=== PATIENT | female | born 1975 | race Caucasian/White ===

== ENCOUNTER 2021-01-23 22:15 | Outpatient (CLI) | payer OTHER | END 2021-01-23 22:16 | disposition critical access hospital (66) | LOC: EMS 22:15 | DX: F41.9 Anxiety disorder, unspecified (principal); R07.89 Other chest pain | CPT/HCPCS: A0425; A0429 ==

== ENCOUNTER 2021-01-23 22:28 | Emergency (ER) | payer OTHER ==
--- NOTE | 2021-01-24 00:15 | ED Physician Documentation ---
History of Present Illness - Stated complaint Stated Complaint: PANIC ATTACK - Chief complaint Chief Complaint: MHE - History obtained from History obtained from: Patient, EMS - History of Present Illness Timing: Today, How many hours ago (1) Pain level now: 2 Improved by: nothing Worsened by: no exacerbating factors - Additonal information Additional information: BIBA, c/o chest pressure, diaphoresis, dizzy, pounding palpitations, onset shortly before arrival, was at home at rest. Review of Systems Constitutional: reports: Sweats. denies: Fever Cardiac: reports: Chest pain / pressure, Palpitations, Calf pain. denies: Pedal edema Respiratory: reports: Dyspnea. 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 - Present Medications Home Medications: Ambulatory Orders Medication Instructions Recorded Confirmed Buprenorphine HCl/Naloxone HCl 01/23/21 [Suboxone 8-2 mg Tab] Gabapentin [Neurontin] 01/23/21 Levothyroxine [Synthroid] 01/23/21 Lisdexamfetamine Dimesylate 01/23/21 01/23/21 [Vyvanse] Pantoprazole Sodium [Protonix] 40 mg PO DAILY 01/23/21 01/23/21 Prochlorperazine [Compazine] 01/23/21 01/23/21 Venlafaxine ER [Effexor ER] 01/23/21 traZODone [Desyrel] 50 mg PO HS 01/23/21 01/23/21 HYDROcod/ACETAM 5/325 [[place] 5/325] 1 - 2 tablet PO Q6H PRN #10 tablet 01/24/21 - Allergies Allergies/Adverse Reactions: Allergies Allergy/AdvReac Type Severity Reaction Status Date / Time buspirone [From BuSpar] Allergy Unknown Verified 01/23/21 22:38 zolpidem [From Ambien] Allergy Unknown Verified 01/23/21 22:38 - Social History Does the pt smoke?: Yes Smoking Status: Current some day smoker Does the pt drink ETOH?: No Does the pt have substance abuse?: Yes Substance Use and Type: Marijuana - Immunizations Immunizations are current?: Yes PD ED PE NORMAL - Vitals Vital signs reviewed: Yes - General General: Alert and oriented X 3, No acute distress, Well developed/nourished - HEENT HEENT: PERRL, EOMI, Moist mucous membranes - Neck Neck: Supple, no meningeal sign, No JVD - Cardiac Cardiac: No murmur, No rub - Respiratory Respiratory: No respiratory distress, Clear bilaterally - Abdomen Abdomen: Soft, Non tender - Derm Derm: Normal color - Extremities Extremities: No edema PD ED PE EXPANDED - Cardiac Cardiac: Tachy, Regular Rhythm Results - Vitals Vitals: Oxygen O2 Source Room air - EKG (time done) No standard instances Rate: Rate (enter#) (90) Rhythm: NSR [place]: Normal Intervals: Normal [place] QRS: LVH Ischemia: Normal ST segments, Q waves (V1,V2) - Labs Labs: Laboratory Tests 01/24/21 01/24/21 01/24/21 00:38 00:38 00:38 WBC 9.7 RBC 4.08 L Hgb 12.4 Hct 37.6 MCV 92.2 MCH 30.4 MCHC 33.0 RDW 12.9 Plt Count 218 MPV 9.1 Neut # (Auto) 7.1 H Lymph # (Auto) 1.7 [place] # (Auto) 0.7 Eos # (Auto) 0.1 Baso # (Auto) 0.1 Absolute Nucleated RBC 0.00 Nucleated RBC % 0.0 D-Dimer Sodium 138 Potassium 4.0 Chloride 109 Carbon Dioxide 23 Anion Gap 6.0 BUN 12 Creatinine 0.9 Estimated GFR (MDRD) 68 L Glucose 95 Calcium 8.9 Total Bilirubin 0.3 AST 14 ALT 14 Alkaline Phosphatase 63 Troponin I High Sens 2.9 Total Protein 6.2 L Albumin 3.9 Globulin 2.3 Albumin/Globulin Ratio 1.7 Lipase 26 01/24/21 00:38 WBC RBC Hgb Hct MCV MCH MCHC RDW Plt Count MPV Neut # (Auto) Lymph # (Auto) [place] # (Auto) Eos # (Auto) Baso # (Auto) Absolute Nucleated RBC Nucleated RBC % D-Dimer 209.2 Sodium Potassium Chloride Carbon Dioxide Anion Gap BUN Creatinine Estimated GFR (MDRD) Glucose Calcium Total Bilirubin AST ALT Alkaline Phosphatase Troponin I High Sens Total Protein Albumin Globulin Albumin/Globulin Ratio Lipase PD MEDICAL DECISION MAKING - ED course Complexity details: reviewed results, re-evaluated patient, considered differential, d/w patient Departure - Departure Disposition: Home, Self Care Clinical Impression: Chest pain, Near syncope Condition: Good Instructions: ED Chest Pain Atypical Unkn Cause, ED Near Syncope Unkn Prescriptions: HYDROcod/ACETAM 5/325 [[place] 5/325] 1 - 2 tablet PO Q6H PRN #10 tablet PRN Reason: Pain Comments: Follow up with your primary care provider, call Tuesday to arrange for next available appointment. Discharge Date/Time: 01/24/21 02:00
[2021-01-24 00:44] LABS: BASOPHILS # (AUTO) 0.1 10^3/uL (0.0-0.1); BASOPHILS % (AUTO) 0.7 %; EOSINOPHILS # (AUTO) 0.1 10^3/uL (0.0-0.7); EOSINOPHILS % (AUTO) 0.5 %; HCT - HEMATOCRIT 37.6 % (37.0-47.0); HGB - HEMOGLOBIN 12.4 g/dL (12.0-16.0); LYMPHOCYTES # (AUTO) 1.7 10^3/uL (1.5-3.5); LYMPHOCYTES % (AUTO) 17.8 %; MEAN CORPUSCULAR HEMOGLOBIN 30.4 pg (27.0-31.0); MEAN CORPUSCULAR VOLUME 92.2 fL (81.0-99.0); MEAN PLATELET VOLUME 9.1 fL (7.9-10.8); MONOCYTES # (AUTO) 0.7 10^3/uL (0.0-1.0); MONOCYTES % (AUTO) 6.7 %; NEUTROPHILS # (AUTO) 7.1 10^3/uL (1.5-6.6); PLT - PLATELET COUNT 218 10^3/uL (130-450); RED BLOOD COUNT 4.08 10^6/uL (4.20-5.40); RED CELL DISTRIBUTION WIDTH 12.9 % (12.0-15.0); WHITE BLOOD COUNT 9.7 x10^3/uL (4.8-10.8)
[2021-01-24 00:59] LABS: ALBUMIN 3.9 g/dL (3.2-5.5); ALBUMIN/GLOBULIN RATIO 1.7 (1.0-2.2); BILIRUBIN,TOTAL 0.3 mg/dL (0.2-1.0); CALCIUM 8.9 mg/dL (8.5-10.3); CREATININE 0.9 mg/dL (0.4-1.0); TOTAL PROTEIN 6.2 g/dL (6.7-8.2)
[2021-01-24] MEDS ORDERED: KETOROLAC 30 MG/ML VIAL IVP STA (01:31)
[2021-01-24] MEDS ORDERED: HYDROcod/ACETAM 5/325 MG TABLET PO STA (01:31)
[2021-01-24 01:57] VITALS: BP 126/78
--- NOTE | 2021-01-24 09:54 | XRAY Report ---
PROCEDURE: Chest 2 View X-Ray INDICATIONS: near syncope, chest pain TECHNIQUE: 2 view(s) of the chest. COMPARISON: None. FINDINGS: Surgical changes and devices: None. Lungs and pleura: No pleural effusions or pneumothorax. Lungs are clear. Mediastinum: Mediastinal contours are normal. Heart size is normal. Bones and chest wall: No suspicious bony abnormalities. Soft tissues appear unremarkable. IMPRESSION: Normal for age, source of current symptoms is not seen. Reviewed by: Hever Jackson MD on 01/24/2021 8:52 AM [facility] Approved by: Hever Jackson MD on 01/24/2021 8:52 AM [facility] Station ID: [id number]
== END 2021-01-24 02:00 | disposition home or self-care (01) ==
LOC: ED 22:28
DX: R07.9 Chest pain, unspecified (principal); R55 Syncope and collapse; F17.200 Nicotine dependence, unspecified, uncomplicated
CPT/HCPCS: 36415; 71046; 80053; 83690; 84484; 85025; 85379; 93005; 96374; 99284; A9270

== ENCOUNTER 2021-01-26 14:19 | Emergency (ER) | payer OTHER ==
[2021-01-26] MEDS ORDERED: LORazepam 1 MG TABLET PO STA (14:49)
--- NOTE | 2021-01-26 14:49 | ED Physician Documentation ---
History of Present Illness - Stated complaint Stated Complaint: CP, LEFT SHOULDER PX - Chief complaint Chief Complaint: Cardiac - History obtained from History obtained from: Patient - Additonal information Additional information: 45-year-old woman with generalized anxiety and diabetes used marijuana on Tuesday night and then was hanging up clothes later and developed substernal chest pressure radiating to the shoulders, especially the left. She has had it persistently since then. She still has presyncopal episodes. She was seen that night and the work-up was negative except for an EKG suggesting LVH. Review of Systems Ten Systems: 10 systems reviewed and negative Constitutional: denies: Fever, Myalgias Nose: denies: Rhinorrhea / runny nose, Congestion Throat: denies: Sore throat Cardiac: reports: Chest pain / pressure. denies: Palpitations Respiratory: denies: Dyspnea, Cough PD PAST MEDICAL HISTORY - Past Medical History GI: GERD Psych: Depression, ADD/ADHD - Past Surgical History Past Surgical History: Yes /MEDICAL COLLECTIONS: Hysterectomy, Breast implants - Present Medications Home Medications: Ambulatory Orders Medication Instructions Recorded Confirmed Buprenorphine HCl/Naloxone HCl 01/23/21 [Suboxone 8-2 mg Tab] Gabapentin [Neurontin] 01/23/21 Levothyroxine [Synthroid] 01/23/21 Lisdexamfetamine Dimesylate 01/23/21 01/23/21 [Vyvanse] Pantoprazole Sodium [Protonix] 40 mg PO DAILY 01/23/21 01/23/21 Prochlorperazine [Compazine] 01/23/21 01/23/21 Venlafaxine ER [Effexor ER] 01/23/21 traZODone [Desyrel] 50 mg PO HS 01/23/21 01/23/21 HYDROcod/ACETAM 5/325 [[place] 5/325] 1 - 2 tablet PO Q6H PRN #10 tablet 01/24/21 LORazepam [Ativan] 1 mg PO TID PRN #12 tablet 01/26/21 - Allergies Allergies/Adverse Reactions: Allergies Allergy/AdvReac Type Severity Reaction Status Date / Time buspirone [From BuSpar] Allergy Unknown Verified 01/26/21 14:22 zolpidem [From Ambien] Allergy Unknown Verified 01/26/21 14:22 - Social History Does the pt smoke?: Yes Smoking Status: Current some day smoker Does the pt drink ETOH?: No Does the pt have substance abuse?: Yes - Immunizations Immunizations are current?: Yes PD ED PE NORMAL - Vitals Vital signs reviewed: Yes - General General: Alert and oriented X 3, No acute distress - HEENT HEENT: PERRL, EOMI - Neck Neck: Supple, no meningeal sign, No bony TTP - Cardiac Cardiac: RRR, No murmur - Respiratory Respiratory: No respiratory distress, Clear bilaterally - Abdomen Abdomen: Soft, Non tender - Back Back: No CVA TTP, No spinal TTP - Derm Derm: Normal color, Warm and dry - Extremities Extremities: No edema, No calf tenderness / cord - Neuro Neuro: Alert and oriented X 3, Normal speech Results - Vitals Vitals: Vital Signs - 24 hr 01/26/21 01/26/21 01/26/21 14:22 16:37 17:08 Temperature 36.5 C 36.9 C Heart Rate 92 78 75 Respiratory 16 16 16 Rate Blood Pressure 144/84 H 134/79 H 140/80 H O2 Saturation 100 99 99 Oxygen O2 Source Room air - EKG (time done) 1422 Rate: Rate (enter#) (91) Rhythm: NSR [place]: Normal Intervals: Normal [place] QRS: LVH Ischemia: Non specific changes Compare to prior EKG: Unchanged from prior EKG Computer interpretation: Agree with computer - Labs Labs: Laboratory Tests 01/26/21 01/26/21 14:54 14:54 Sodium 137 Potassium 4.0 Chloride 104 Carbon Dioxide 24 Anion Gap 9.0 BUN 11 Creatinine 0.7 Estimated GFR (MDRD) 91 Glucose 110 H Calcium 9.1 Total Bilirubin 0.3 AST 13 ALT 13 Alkaline Phosphatase 66 Troponin I High Sens < 2.3 L Total Protein 6.6 L Albumin 4.1 Globulin 2.5 Albumin/Globulin Ratio 1.6 Lipase 31 PD MEDICAL DECISION MAKING - ED course Complexity details: re-evaluated patient ED course: 45yo female Presents with two days of constant atypical chest pain associated with severe anxiety status post THC use. No evidence of ACS, PE. Feeling better after benzodiazepine administration. Previous chronic benzodiazepine use in the past but not currently. Was seen by my partner the other night and given hydrocodone which may be ineffective given Suboxone use. Departure - Departure Disposition: 01 Home, Self Care Clinical Impression: Atypical chest pain Condition: Good Record reviewed to determine appropriate education?: Yes Instructions: ED Chest Pain NonCardiac Prescriptions: LORazepam [Ativan] 1 mg PO TID PRN #12 tablet PRN Reason: Anxiety Comments: Prescription sent electronically to [facility] in [place]. At your request I did notify Dr. Ravi about the need for an echocardiogram. Do not drink or drive while taking lorazepam. Return for new or worsening symptoms. Follow-up with Dr. Ravi regarding echocardiography order. Discharge Date/Time: 01/26/21 17:08
[2021-01-26 15:16] LABS: ALBUMIN 4.1 g/dL (3.2-5.5); ALBUMIN/GLOBULIN RATIO 1.6 (1.0-2.2); BILIRUBIN,TOTAL 0.3 mg/dL (0.2-1.0); CALCIUM 9.1 mg/dL (8.5-10.3); CREATININE 0.7 mg/dL (0.4-1.0); TOTAL PROTEIN 6.6 g/dL (6.7-8.2)
--- NOTE | 2021-01-26 15:20 | XRAY Report ---
PROCEDURE: Chest 1 View X-Ray INDICATIONS: Chest pain TECHNIQUE: One view of the chest was acquired. COMPARISON: 01/24/2021. FINDINGS: Surgical changes and devices: None. Lungs and pleura: No pleural effusions or pneumothorax. Lungs are clear. Mediastinum: Mediastinal contours appear normal. Heart size is normal. Bones and chest wall: No suspicious bony lesions. Overlying soft tissues appear unremarkable. IMPRESSION: 1. No acute cardiopulmonary disease. Reviewed by: Justin Wheat MD on 01/26/2021 3:19 PM PDT Approved by: Justin Wheat MD on 01/26/2021 3:19 PM PDT Station ID: [id number]
[2021-01-26 17:09] VITALS: BP 140/80
== END 2021-01-26 17:08 | disposition home or self-care (01) ==
LOC: ED 14:19
DX: R07.89 Other chest pain (principal); F17.200 Nicotine dependence, unspecified, uncomplicated
CPT/HCPCS: 36415; 71045; 80053; 83690; 84484; 93005; 99284; J8499; 85025

== ENCOUNTER 2021-05-21 09:21 | Emergency (ER) | payer OTHER ==
--- NOTE | 2021-05-21 09:49 | ED Physician Documentation ---
PD HPI ABD PAIN - Stated complaint Stated Complaint: RT SIDE BACK PX/NAUSEA - Chief complaint Chief Complaint: Abd Pain - History obtained from History obtained from: Patient - History of Present Illness Timing - onset: How many weeks ago (1) Timing - duration: Weeks (1) Timing - details: Gradual onset, Still present, Waxing and waning Quality: Aching, Sharp, Pain Location: RLQ Radiation: Right flank Improved by: No: Eating, Meds (Rx with Cipro for UTI last week without improvement.) Worsened by: Moving. No: Eating, Breathing Associated symptoms: Nausea, Dysuria. No: Fever, Vomiting, Constipation Similar symptoms before: Diagnosis (was diagnosed with UTi by urine and Rx with Cipro by PCP.) Review of Systems Constitutional: denies: Fever, Chills Nose: denies: Rhinorrhea / runny nose, Congestion Throat: denies: Sore throat Respiratory: denies: Cough GI: reports: Abdominal Pain, Nausea. denies: Vomiting, Constipation, Diarrhea : reports: Dysuria. 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 - Present Medications Home Medications: Ambulatory Orders Medication Instructions Recorded Confirmed Buprenorphine HCl/Naloxone HCl 01/23/21 [Suboxone 8-2 mg Tab] Gabapentin [Neurontin] 01/23/21 Levothyroxine [Synthroid] 01/23/21 Lisdexamfetamine Dimesylate 01/23/21 01/23/21 [Vyvanse] Pantoprazole Sodium [Protonix] 40 mg PO DAILY 01/23/21 01/23/21 Prochlorperazine [Compazine] 01/23/21 01/23/21 Venlafaxine ER [Effexor ER] 01/23/21 traZODone [Desyrel] 50 mg PO HS 01/23/21 01/23/21 HYDROcod/ACETAM 5/325 [[place] 5/325] 1 - 2 tablet PO Q6H PRN #10 tablet 01/24/21 LORazepam [Ativan] 1 mg PO TID PRN #12 tablet 01/26/21 Doxycycline Hyclate 100 mg PO BID 7 Days #14 tab 05/21/21 HYDROcod/ACETAM 5/325 [[place] 5/325] 1 ea PO Q6H PRN #12 tablet 05/21/21 Naproxen 250 mg PO BID 7 Days #14 tablet 05/21/21 Ondansetron Odt [Zofran] 4 mg TL Q6H PRN #10 tablet 05/21/21 Phenazopyridine HCl [Pyridium] 100 mg PO TID PRN #15 tablet 05/21/21 - Allergies Allergies/Adverse Reactions: Allergies Allergy/AdvReac Type Severity Reaction Status Date / Time baclofen Allergy Hallucinati Verified 05/21/21 09:57 ons buspirone [From BuSpar] Allergy Unknown Verified 05/21/21 09:57 carbamazepine [From Tegretol] Allergy Unknown Verified 05/21/21 09:57 zolpidem [From Ambien] Allergy Unknown Verified 05/21/21 09:57 cyclobenzaprine AdvReac Anxiety Verified 05/21/21 09:57 [From Flexeril] - Social History Does the pt smoke?: Yes Smoking Status: Current some day smoker Does the pt drink ETOH?: No Does the pt have substance abuse?: Yes - Immunizations Immunizations are current?: Yes PD ED PE NORMAL - Vitals Vital signs reviewed: Yes - General General: Alert and oriented X 3, Well developed/nourished, Other (appears uncomfortable. Holding right lower abd. ) - Neck Neck: Supple, no meningeal sign, No adenopathy - Cardiac Cardiac: RRR, No murmur - Respiratory Respiratory: Clear bilaterally - Abdomen Abdomen: Normal bowel sounds, Soft, Non distended, No organomegaly, Other - Back Back: Other (right CVA tenderness) - Derm Derm: Normal color, Warm and dry, No rash - Neuro Neuro: Alert and oriented X 3, No motor deficit, Normal speech Results - Vitals Vitals: Oxygen O2 Source Room air - Labs Labs: Laboratory Tests 05/21/21 05/21/21 05/21/21 09:35 10:19 10:19 WBC 5.3 RBC 4.66 Hgb 14.2 Hct 43.4 MCV 93.1 MCH 30.5 MCHC 32.7 RDW 13.2 Plt Count 275 MPV 8.5 Neut # (Auto) 3.2 Lymph # (Auto) 1.6 [place] # (Auto) 0.3 Eos # (Auto) 0.1 Baso # (Auto) 0.0 Absolute Nucleated RBC 0.00 Nucleated RBC % 0.0 Sodium 139 Potassium 4.1 Chloride 105 Carbon Dioxide 25 Anion Gap 9.0 BUN 20 Creatinine 0.9 Estimated GFR (MDRD) 68 L Glucose 87 Calcium 9.0 Total Bilirubin 0.9 AST 15 ALT 13 Alkaline Phosphatase 78 Total Protein 7.4 Albumin 4.1 Globulin 3.3 Albumin/Globulin Ratio 1.2 Lipase 41 Urine Color DARK YELLOW Urine Clarity CLEAR Urine pH 5.5 Ur Specific [place] >=1.030 H Urine Protein NEGATIVE Urine Glucose (UA) NEGATIVE Urine Ketones NEGATIVE Urine Occult Blood NEGATIVE Urine Nitrite NEGATIVE Urine Bilirubin NEGATIVE Urine Urobilinogen 0.2 (NORMAL) Ur Leukocyte Esterase NEGATIVE Ur Microscopic Review NOT INDICATED Urine Culture Comments NOT INDICATED Urine HCG, Qual NEGATIVE - Rads (name of study) abd/pelvic CT Radiology: Prelim report reviewed (no acute findings. Normal bowel loops. No stones. No abscesses. ), See rad report PD MEDICAL DECISION MAKING - ED course Complexity details: reviewed results (urine is clear but symptoms persist so may be partly treated. Hall eto Doxy based on usual susceptibility of organism as I don't have the actual C&S (patient told me name of culture ID). ), considered differential, d/w patient Departure - Departure Disposition: 01 Home, Self Care Clinical Impression: Right sided abdominal pain, Recent urinary tract infection Condition: Stable Record reviewed to determine appropriate education?: Yes Instructions: ED Abdominal Pain Unkn Cause Follow-Up: ALEXA NOGUEIRA, SOLEM [Primary Care Provider] - Prescriptions: Doxycycline Hyclate 100 mg PO BID 7 Days #14 tab Naproxen 250 mg PO BID 7 Days #14 tablet HYDROcod/ACETAM 5/325 [[place] 5/325] 1 ea PO Q6H PRN #12 tablet PRN Reason: Pain Phenazopyridine HCl [Pyridium] 100 mg PO TID PRN #15 tablet PRN Reason: Abdominal Pain Ondansetron Odt [Zofran] 4 mg TL Q6H PRN #10 tablet PRN Reason: Nausea / Vomiting Comments: Urine appears clear now. It is hard to tell whether that is resolved infection versus partly treated since you are still having your symptoms. It may be possible to just have residual inflammation causing your symptoms. With that in mind, we can use a different antibiotic to see if there is still any residual infection. Stop the Cipro and change to doxycycline twice daily for a week. We will treat the inflammation with naproxen twice daily with food. You can also use phenazopyridine to help with urinary discomfort. Add ondansetron if needed for nausea and Tylenol or hydrocodone if needed for pain. Follow-up with your primary care or [facility] in the next several days if not improved. The prescriptions were transmitted to [facility] pharmacy. Discharge Date/Time: 05/21/21 12:29
[2021-05-21 09:55] LABS: BILIRUBIN,URINE NEGATIVE (NEGATIVE); GLUCOSE, URINE (UA) NEGATIVE (NEGATIVE); KETONES,URINE (UA) NEGATIVE (NEGATIVE); LEUKOCYTE ESTERASE, URINE NEGATIVE (NEGATIVE); NITRITE,URINE NEGATIVE (NEGATIVE); OCCULT BLOOD,URINE NEGATIVE (NEGATIVE); PH,URINE 5.5 PH (5.0-7.5); PROTEIN,URINE NEGATIVE (NEGATIVE); UROBILINOGEN,URINE 0.2 (NORMAL) E.U./dL (NORMAL)
[2021-05-21 09:56] LABS: CLARITY,URINE CLEAR (CLEAR); HCG UR QUAL NEGATIVE
[2021-05-21] MEDS ORDERED: KETOROLAC 15 MG/ML VIAL IVP STA (10:10)
[2021-05-21] MEDS ORDERED: HYDROmorphone 1 MG/ML CARPUJECT IVP STA (10:11)
[2021-05-21] MEDS ORDERED: PHENAZOPYRIDINE 100 MG TABLET PO STA (10:14)
[2021-05-21] MEDS ORDERED: SODIUM CHLORIDE 0.9% 1,000 ML IV STA (10:15)
[2021-05-21 10:25] LABS: BASOPHILS % (AUTO) 0.8 %; EOSINOPHILS # (AUTO) 0.1 10^3/uL (0.0-0.7); EOSINOPHILS % (AUTO) 2.1 %; HCT - HEMATOCRIT 43.4 % (37.0-47.0); HGB - HEMOGLOBIN 14.2 g/dL (12.0-16.0); LYMPHOCYTES # (AUTO) 1.6 10^3/uL (1.5-3.5); LYMPHOCYTES % (AUTO) 30.3 %; MEAN CORPUSCULAR HEMOGLOBIN 30.5 pg (27.0-31.0); MEAN CORPUSCULAR HGB CONC 32.7 g/dL (32.0-36.0); MEAN CORPUSCULAR VOLUME 93.1 fL (81.0-99.0); MEAN PLATELET VOLUME 8.5 fL (7.9-10.8); MONOCYTES # (AUTO) 0.3 10^3/uL (0.0-1.0); MONOCYTES % (AUTO) 6.3 %; NEUTROPHILS # (AUTO) 3.2 10^3/uL (1.5-6.6); NEUTROPHILS % (AUTO) 60.3 %; PLT - PLATELET COUNT 275 10^3/uL (130-450); RED BLOOD COUNT 4.66 10^6/uL (4.20-5.40); RED CELL DISTRIBUTION WIDTH 13.2 % (12.0-15.0); WHITE BLOOD COUNT 5.3 x10^3/uL (4.8-10.8)
[2021-05-21 10:43] LABS: ALBUMIN 4.1 g/dL (3.2-5.5); ALBUMIN/GLOBULIN RATIO 1.2 (1.0-2.2); BILIRUBIN,TOTAL 0.9 mg/dL (0.2-1.0); CREATININE 0.9 mg/dL (0.4-1.0); POTASSIUM 4.1 mmol/L (3.5-5.0); TOTAL PROTEIN 7.4 g/dL (6.7-8.2)
--- NOTE | 2021-05-21 11:00 | CT Report ---
PROCEDURE: Abdomen/Pelvis WO INDICATIONS: right abd to flank pain for a week TECHNIQUE: Noncontrast 5 mm thick sections acquired from the diaphragms to the symphysis. 5 mm coronal and sagi ttal reformats were then performed. For radiation dose reduction, the following was used: automated exposure control, adjustment of mA and/or kV according to patient size. COMPARISON: None. FINDINGS: Image quality: Excellent. ABDOMEN: Lung bases: Lung bases are clear. Heart size is normal. Solid organs: Unenhanced liver, spleen, gallbladder, pancreas, and adrenal glands are unremarkable. N o hydronephrosis, hydroureter, or perinephric fat stranding. Peritoneum and bowel: Unenhanced bowel loops demonstrate normal wall thickness and caliber. No free fluid or air. Nodes and vessels: No retroperitoneal or mesenteric adenopathy by size criteria. Aorta and inferior vena cava are normal in caliber. Miscellaneous: No ventral hernias. PELVIS: Genitourinary: Bladder wall thickness is normal. Miscellaneous: No inguinal hernias or adenopathy. Bones: No suspicious bony lesions. No vertebral body compression fractures. IMPRESSION: No acute finding. Reviewed by: Javier Elizadle MD on 05/21/2021 10:58 AM PDT Approved by: Javier Elizalde MD on 05/21/2021 10:58 AM PDT Station ID: [id number]
[2021-05-21 11:59] VITALS: BP 112/65
== END 2021-05-21 12:29 | disposition home or self-care (01) ==
LOC: ED 09:21
DX: R10.31 Right lower quadrant pain (principal); R11.0 Nausea; R30.0 Dysuria; F17.200 Nicotine dependence, unspecified, uncomplicated
CPT/HCPCS: 36415; 74176; 80053; 81003; 81025; 83690; 85025; 96374; 96375; 99283; 99284; A9270; J1170; 81001; 87086

== ENCOUNTER 2021-06-08 12:13 | Outpatient (CLI) | payer OTHER | END 2021-06-08 23:59 | disposition home or self-care (01) | LOC: LAB.N 12:13 | PROVIDERS: ATTEND Physician Assistant Medical | DX: Z20.822 Contact with and (suspected) exposure to COVID-19 (principal) ==

== ENCOUNTER 2022-02-06 08:00 | Outpatient (CLI) | payer OTHER | END 2022-02-06 23:59 | disposition home or self-care (01) | LOC: LAB.N 08:00 | PROVIDERS: ATTEND Family Medicine | DX: Z20.820 Contact with and (suspected) exposure to varicella (principal) | CPT/HCPCS: 86787 ==

== ENCOUNTER 2022-08-04 09:51 | Emergency (ER) | payer OTHER ==
[2022-08-04 10:01] VITALS: BP 147/81
--- NOTE | 2022-08-04 10:33 | XRAY Report ---
PROCEDURE: Chest 1 View X-Ray INDICATIONS: Chest pain TECHNIQUE: One view of the chest was acquired. COMPARISON: None. FINDINGS: Surgical changes and devices: None. Lungs and pleura: No pleural effusions or pneumothorax. Lungs are clear. Mediastinum: Mediastinal contours appear normal. Heart size is normal. Bones and chest wall: No suspicious bony lesions. Overlying soft tissues appear unremarkable. IMPRESSION: No evidence acute pulmonary process. Reviewed by: Adam Savage MD on 08/04/2022 10:32 AM [facility] Approved by: Aadm Savage MD on 08/04/2022 10:32 AM [facility] Station ID: [id number]
[2022-08-04 10:35] LABS: BASOPHILS # (AUTO) 0.1 10^3/uL (0.0-0.1); BASOPHILS % (AUTO) 0.9 %; EOSINOPHILS # (AUTO) 0.2 10^3/uL (0.0-0.7); EOSINOPHILS % (AUTO) 2.2 %; HCT - HEMATOCRIT 42.7 % (37.0-47.0); LYMPHOCYTES # (AUTO) 2.4 10^3/uL (1.5-3.5); LYMPHOCYTES % (AUTO) 34.6 %; MEAN CORPUSCULAR HEMOGLOBIN 29.9 pg (27.0-31.0); MEAN CORPUSCULAR HGB CONC 32.8 g/dL (32.0-36.0); MEAN PLATELET VOLUME 8.5 fL (7.9-10.8); MONOCYTES # (AUTO) 0.4 10^3/uL (0.0-1.0); MONOCYTES % (AUTO) 5.9 %; NEUTROPHILS # (AUTO) 3.9 10^3/uL (1.5-6.6); NEUTROPHILS % (AUTO) 56.3 %; PLT - PLATELET COUNT 309 10^3/uL (130-450); RED BLOOD COUNT 4.69 10^6/uL (4.20-5.40); RED CELL DISTRIBUTION WIDTH 13.4 % (12.0-15.0)
[2022-08-04 10:49] LABS: ALBUMIN 4.3 g/dL (3.2-5.5); ALBUMIN/GLOBULIN RATIO 1.5 (1.0-2.2); BILIRUBIN,TOTAL 0.3 mg/dL (0.2-1.0); CALCIUM 9.2 mg/dL (8.5-10.3); CREATININE 0.9 mg/dL (0.4-1.0); POTASSIUM 4.1 mmol/L (3.5-5.0); TOTAL PROTEIN 7.2 g/dL (6.7-8.2)
== END 2022-08-04 12:30 | disposition left against medical advice (07) ==
LOC: ED 09:51
DX: R07.9 Chest pain, unspecified (principal); Z53.29 Procedure and treatment not carried out because of patient's decision for other reasons
CPT/HCPCS: 36415; 80053; 83690; 84484; 85025; 93005

== ENCOUNTER 2022-12-06 16:21 | Emergency (ER) | payer OTHER ==
[2022-12-06 16:34] VITALS: BP 134/87
[2022-12-06] MEDS ORDERED: ALBUTEROL NEB 2.5 MG/3 ML INH STA (16:42)
[2022-12-06] MEDS ORDERED: KETOROLAC 15 MG/ML VIAL IVP STA (16:42)
[2022-12-06] MEDS ORDERED: SODIUM CHLORIDE 0.9% 1,000 ML IV STA (16:42)
[2022-12-06] MEDS ORDERED: diphenhydrAMINE INJ 50 MG/ML VIAL IVP STA (16:42)
[2022-12-06] MEDS ORDERED: METOCLOPRAMIDE 10 MG/2 ML VIAL IVP STA (16:42)
[2022-12-06] MEDS ORDERED: DEXAMETHASONE 10 MG/ML VIAL IVP STA (16:42)
--- NOTE | 2022-12-06 16:44 | ED Physician Documentation ---
PD HPI HEADACHE - Stated complaint Stated Complaint: TELLEZ - Chief complaint Chief Complaint: Neuro - History obtained from History obtained from: Patient, Family - Additional information Additional information: 47-year-old woman with history of migraines presents with a headache that is somewhat typical for her migraines but more severe and not responsive to her home medications which included Maxalt and Excedrin. Is been going on for 2 days, bitemporal headache associated with nausea and light sensitivity. It also is associated with sinus pain and a cough and wheezing. She does have a history of asthma. No fevers. She is here with her . 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 - Present Medications Home Medications: Ambulatory Orders Medication Instructions Recorded Confirmed Buprenorphine HCl/Naloxone HCl 01/23/21 [Suboxone 8-2 mg Tab] Gabapentin [Neurontin] 01/23/21 Levothyroxine [Synthroid] 01/23/21 Lisdexamfetamine Dimesylate 01/23/21 01/23/21 [Vyvanse] Pantoprazole Sodium [Protonix] 40 mg PO DAILY 01/23/21 01/23/21 Prochlorperazine [Compazine] 01/23/21 01/23/21 Venlafaxine ER [Effexor ER] 01/23/21 traZODone [Desyrel] 50 mg PO HS 01/23/21 01/23/21 HYDROcod/ACETAM 5/325 [[place] 5/325] 1 - 2 tablet PO Q6H PRN #10 tablet 01/24/21 LORazepam [Ativan] 1 mg PO TID PRN #12 tablet 01/26/21 Doxycycline Hyclate 100 mg PO BID 7 Days #14 tab 05/21/21 HYDROcod/ACETAM 5/325 [[place] 5/325] 1 ea PO Q6H PRN #12 tablet 05/21/21 Naproxen 250 mg PO BID 7 Days #14 tablet 05/21/21 Ondansetron Odt [Zofran] 4 mg TL Q6H PRN #10 tablet 05/21/21 Phenazopyridine HCl [Pyridium] 100 mg PO TID PRN #15 tablet 05/21/21 Famotidine [Pepcid] 20 mg PO DAILY #20 tablet 07/05/22 HYDROcod/ACETAM 5/325 [[place] 5/325] 1 ea PO Q6H PRN #18 tablet 07/05/22 Lidocaine Viscous 2% [Xylocaine 5 ml PO Q4H PRN #100 ml 07/05/22 Viscous 2%] Ondansetron Odt [Zofran] 4 mg TL Q6H PRN #10 tablet 07/05/22 Sucralfate [Carafate] 1 gm PO ACHS #20 tablet 07/05/22 Albuterol Sulf [Ventolin Hfa 1 - 2 puffs INH Q4HR PRN #1 each 12/06/22 Inhaler] - Allergies Allergies/Adverse Reactions: Allergies Allergy/AdvReac Type Severity Reaction Status Date / Time baclofen Allergy Hallucinati Verified 12/06/22 16:35 ons buspirone [From BuSpar] Allergy Unknown Verified 12/06/22 16:35 carbamazepine [From Tegretol] Allergy Unknown Verified 12/06/22 16:35 zolpidem [From Ambien] Allergy Unknown Verified 12/06/22 16:35 cyclobenzaprine AdvReac Anxiety Verified 12/06/22 16:35 [From Flexeril] - Social History Does the pt smoke?: Yes Smoking Status: Current every day smoker Does the pt drink ETOH?: No Does the pt have substance abuse?: Yes - Immunizations Immunizations are current?: Yes PD ED PE NORMAL - Vitals Vital signs reviewed: Yes - General General: Alert and oriented X 3, Other (Appears uncomfortable and light sensitive) - HEENT HEENT: PERRL, Pharynx benign - Neck Neck: Supple, no meningeal sign, No bony TTP - Cardiac Cardiac: RRR, No murmur - Respiratory Respiratory: No respiratory distress, Other (Mild expiratory wheezes without focal findings) - Abdomen Abdomen: Non tender - Derm Derm: No rash - Neuro Neuro: Alert and oriented X 3, windows systems admin 2-12 intact, No motor deficit, No sensory deficit, Normal speech Eye Opening: Spontaneous Motor: Obeys Commands Verbal: Oriented GCS Score: 15 Results - Vitals Vitals: Vital Signs - 24 hr 12/06/22 12/06/22 16:31 17:06 Temperature 36.5 C Heart Rate 104 H 86 Respiratory 16 20 Rate Blood Pressure 134/87 H O2 Saturation 96 Oxygen O2 Source Room air PD Medical Decision Making - ED course ED course: 47-year-old woman presents with a worse than usual headache in the setting of a viral URI. The headache is gradual in onset and similar to prior headaches. As such I doubt subarachnoid hemorrhage. There are no infectious symptoms such as fever or stiff neck to make me suspect meningitis. No carbon monoxide exposure by history. After administration of IV fluids, dexamethasone, Toradol, Reglan, and Benadryl she was feeling much better and requested discharge. Departure - Departure Disposition: Home, Self Care Clinical Impression: Migraine Condition: Good Record reviewed to determine appropriate education?: Yes Instructions: ED Headache Migraine Prescriptions: Albuterol Sulf [Ventolin Hfa Inhaler] 1 - 2 puffs INH Q4HR PRN #1 each PRN Reason: Shortness Of Air/Wheezing Comments: I sent your prescription electronically to [facility] in [place]. Call your doctor to arrange a follow-up appointment, make the next available appointment. In the interim, return anytime if worse or if new symptoms develop. Forms: Activity restrictions
== END 2022-12-06 18:02 | disposition home or self-care (01) ==
LOC: ED 16:21
DX: G43.909 Migraine, unspecified, not intractable, without status migrainosus (principal); F17.200 Nicotine dependence, unspecified, uncomplicated; Z79.899 Other long term (current) drug therapy
CPT/HCPCS: 94640; 94664; 96374; 96375; 99283; 99285; J1200; J2765

== ENCOUNTER 2022-12-13 10:59 | Emergency (ER) | payer OTHER ==
[2022-12-13 11:37] LABS: BASOPHILS # (AUTO) 0.1 10^3/uL (0.0-0.1); BASOPHILS % (AUTO) 0.9 %; EOSINOPHILS # (AUTO) 0.1 10^3/uL (0.0-0.7); LYMPHOCYTES # (AUTO) 3.6 10^3/uL (1.5-3.5); LYMPHOCYTES % (AUTO) 28.4 %; MEAN CORPUSCULAR HEMOGLOBIN 29.9 pg (27.0-31.0); MEAN CORPUSCULAR HGB CONC 32.6 g/dL (32.0-36.0); MEAN CORPUSCULAR VOLUME 91.7 fL (81.0-99.0); MEAN PLATELET VOLUME 8.4 fL (7.9-10.8); MONOCYTES # (AUTO) 0.8 10^3/uL (0.0-1.0); MONOCYTES % (AUTO) 6.2 %; NEUTROPHILS # (AUTO) 7.8 10^3/uL (1.5-6.6); NEUTROPHILS % (AUTO) 62.7 %; PLT - PLATELET COUNT 327 10^3/uL (130-450); RED BLOOD COUNT 4.69 10^6/uL (4.20-5.40); RED CELL DISTRIBUTION WIDTH 13.8 % (12.0-15.0); WHITE BLOOD COUNT 12.5 x10^3/uL (4.8-10.8)
--- NOTE | 2022-12-13 11:40 | XRAY Report ---
PROCEDURE: Chest 1 View X-Ray INDICATIONS: Chest pain TECHNIQUE: One view of the chest was acquired. COMPARISON: CXR 08/04/2022, 01/26/2021. FINDINGS: Surgical changes and devices: None. Lungs and pleura: No pleural effusions or pneumothorax. Lungs are clear. Mediastinum: Mediastinal contours appear normal. Heart size is normal. Bones and chest wall: No suspicious bony lesions. Overlying soft tissues appear unremarkable. IMPRESSION: No acute cardiopulmonary abnormality. Reviewed by: Ramo Ibanez MD on 12/13/2022 11:38 AM PDT Approved by: Ramo Ibanez MD on 12/13/2022 11:38 AM PDT Station ID: [id number]
[2022-12-13] MEDS ORDERED: diphenhydrAMINE INJ 50 MG/ML VIAL IVP STA (11:48)
[2022-12-13] MEDS ORDERED: SODIUM CHLORIDE 0.9% 1,000 ML IV STA (11:48)
[2022-12-13] MEDS ORDERED: DEXAMETHASONE 10 MG/ML VIAL IVP STA (11:48)
[2022-12-13] MEDS ORDERED: METOCLOPRAMIDE 10 MG/2 ML VIAL IVP STA (11:48)
[2022-12-13] MEDS ORDERED: KETOROLAC 15 MG/ML VIAL IVP STA (11:48)
--- NOTE | 2022-12-13 11:50 | ED Physician Documentation ---
PD HPI CHEST PAIN - Stated complaint Stated Complaint: CHEST PX/SOA - Chief complaint Chief Complaint: Cardiac - History obtained from History obtained from: Patient - Additional information Additional information: 47-year-old woman history of asthma, reflux, hiatal hernia, migraines, hyperlipidemia, insulin resistance presents for evaluation of chest pain and cough. I saw her a week ago for a migraine. She improved well with the administration of Benadryl, dexamethasone, Reglan, and Toradol. Subsequently a few days later started to get more of a respiratory illness with cough initially productive of thin yellow sputum, and now over the last couple of days has been more white with blood tinge. She had a remote visit with her physician who prescribed her guaifenesin with codeine, A Medrol Dosepak, and an inhaler. Subsequently went to the urgent care in [place] Tuesday night, 3 days ago and had a chest x-ray that was reportedly normal and was started on Augmentin for sinus infection. Since that night she has had left-sided chest pain radiating to the jaw and shoulder. Associate with shortness of breath. She denies pedal edema or calf pain. No personal history of DVT or PE. No recent travel. No fevers. She also has a new migraine, gradual onset bitemporal headache that is throbbing associate with light sensitivity similar to prior. 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 - Present Medications Home Medications: Ambulatory Orders Medication Instructions Recorded Confirmed Buprenorphine HCl/Naloxone HCl 01/23/21 [Suboxone 8-2 mg Tab] Gabapentin [Neurontin] 01/23/21 Levothyroxine [Synthroid] 01/23/21 Lisdexamfetamine Dimesylate 01/23/21 01/23/21 [Vyvanse] Pantoprazole Sodium [Protonix] 40 mg PO DAILY 01/23/21 01/23/21 Prochlorperazine [Compazine] 01/23/21 01/23/21 Venlafaxine ER [Effexor ER] 01/23/21 traZODone [Desyrel] 50 mg PO HS 01/23/21 01/23/21 HYDROcod/ACETAM 5/325 [[place] 5/325] 1 - 2 tablet PO Q6H PRN #10 tablet 01/24/21 LORazepam [Ativan] 1 mg PO TID PRN #12 tablet 01/26/21 Doxycycline Hyclate 100 mg PO BID 7 Days #14 tab 05/21/21 HYDROcod/ACETAM 5/325 [[place] 5/325] 1 ea PO Q6H PRN #12 tablet 05/21/21 Naproxen 250 mg PO BID 7 Days #14 tablet 05/21/21 Ondansetron Odt [Zofran] 4 mg TL Q6H PRN #10 tablet 05/21/21 Phenazopyridine HCl [Pyridium] 100 mg PO TID PRN #15 tablet 05/21/21 Famotidine [Pepcid] 20 mg PO DAILY #20 tablet 07/05/22 HYDROcod/ACETAM 5/325 [[place] 5/325] 1 ea PO Q6H PRN #18 tablet 07/05/22 Lidocaine Viscous 2% [Xylocaine 5 ml PO Q4H PRN #100 ml 07/05/22 Viscous 2%] Ondansetron Odt [Zofran] 4 mg TL Q6H PRN #10 tablet 07/05/22 Sucralfate [Carafate] 1 gm PO ACHS #20 tablet 07/05/22 Albuterol Sulf [Ventolin Hfa 1 - 2 puffs INH Q4HR PRN #1 each 12/06/22 Inhaler] - Allergies Allergies/Adverse Reactions: Allergies Allergy/AdvReac Type Severity Reaction Status Date / Time baclofen Allergy Hallucinati Verified 12/13/22 11:09 ons buspirone [From BuSpar] Allergy Unknown Verified 12/13/22 11:09 carbamazepine [From Tegretol] Allergy Unknown Verified 12/13/22 11:09 zolpidem [From Ambien] Allergy Unknown Verified 12/13/22 11:09 cyclobenzaprine AdvReac Anxiety Verified 12/13/22 11:09 [From Flexeril] - Social History Does the pt smoke?: Yes Smoking Status: Current every day smoker Does the pt drink ETOH?: No Does the pt have substance abuse?: Yes - Immunizations Immunizations are current?: Yes - POLST Patient has POLST: No PD ED PE NORMAL - Vitals Vital signs reviewed: Yes - General General: Alert and oriented X 3, No acute distress - HEENT HEENT: PERRL, EOMI - Neck Neck: Supple, no meningeal sign, No bony TTP - Cardiac Cardiac: RRR, No murmur - Respiratory Respiratory: No respiratory distress, Clear bilaterally - Abdomen Abdomen: Non tender - Extremities Extremities: No edema, No calf tenderness / cord - Neuro Neuro: Alert and oriented X 3, Normal speech Results - Vitals Vitals: Vital Signs - 24 hr 12/13/22 12/13/22 11:05 13:10 Temperature 36.6 C Heart Rate 119 H 75 Respiratory 20 20 Rate Blood Pressure 145/92 H 129/90 H O2 Saturation 98 97 Oxygen O2 Source Room air - EKG (time done) 1114 EKG releavant findings:: EKG personally interpreted by author of this note. Relevant findings are: Rate: Rate (enter#) (106) Rhythm: Sinus tachycardia [place]: Normal Intervals: Normal IN QRS: Normal Ischemia: Non specific changes. No: ST elevation c/w ischemia, ST depression - Labs Labs: Laboratory Tests 12/13/22 12/13/22 12/13/22 11:30 11:30 11:30 WBC 12.5 H RBC 4.69 Hgb 14.0 Hct 43.0 MCV 91.7 MCH 29.9 MCHC 32.6 RDW 13.8 Plt Count 327 MPV 8.4 Neut # (Auto) 7.8 H Lymph # (Auto) 3.6 H [place] # (Auto) 0.8 Eos # (Auto) 0.1 Baso # (Auto) 0.1 Absolute Nucleated RBC 0.00 Nucleated RBC % 0.0 Sodium 138 Potassium 3.6 Chloride 107 Carbon Dioxide 23 Anion Gap 8.0 BUN 14 Creatinine 0.9 Estimated GFR (MDRD) 68 L Glucose 81 Calcium 8.8 Total Bilirubin 0.4 AST 12 ALT 13 Alkaline Phosphatase 79 Troponin I High Sens < 2.3 L Total Protein 7.0 Albumin 3.8 Globulin 3.2 Albumin/Globulin Ratio 1.2 Lipase 26 - Rads (name of study) 1v chest- nl Relevant Findings:: Final report received, EMP independent interpretation of test CT angiography chest Relevant Findings:: Final report received, EMP independent interpretation of test PD Medical Decision Making - ED course ED course: 47-year-old woman developed a respiratory infection and was started on medications including Medrol and then subsequently developed chest pain, hemoptysis, and trouble breathing. This is most likely related to her respiratory illness, Alternatively some of the symptoms may be from the Medrol Dosepak such as the shakiness,, the differential diagnosis would include PE and less likely ACS. Her chest x-ray is unremarkable. EKG nonischemic. She does have mild resting tachycardia which would go along with PE. We will treat her headache with IV Toradol, Reglan, Benadryl, and dexamethasone. We will obtain CT scanning of the chest to evaluate for occult pneumonia and PE. The above medications did improve the headache, she requested discharge. CT scanning was negative. Departure - Departure Disposition: 01 Home, Self Care Clinical Impression: Migraine Qualifiers: Migraine type: without aura Status migrainosus presence: with status migrainosus Intractability: not intractable Qualified Code(s): G43.001 - Migraine without aura, not intractable, with status migrainosus Chest pain Qualifiers: Chest pain type: unspecified Qualified Code(s): R07.9 - Chest pain, unspecified Condition: Good Record reviewed to determine appropriate education?: Yes Instructions: ED Chest Pain NonCardiac Comments: CAT scan of the chest was negative and there is no sign of heart attack. I think it is felipe that you already stopped the steroids as some of your symptoms may be related to the Medrol Dosepak. Call your doctor to arrange a follow-up appointment, make the next available appointment. In the interim, return anytime if worse or if new symptoms develop.
[2022-12-13 11:55] LABS: ALBUMIN 3.8 g/dL (3.2-5.5); ALBUMIN/GLOBULIN RATIO 1.2 (1.0-2.2); BILIRUBIN,TOTAL 0.4 mg/dL (0.2-1.0); CALCIUM 8.8 mg/dL (8.5-10.3); CREATININE 0.9 mg/dL (0.4-1.0); POTASSIUM 3.6 mmol/L (3.5-5.0)
[2022-12-13] MEDS ORDERED: iohexoL-300 100 ML VIAL ONE (12:05)
--- NOTE | 2022-12-13 13:11 | CT Report ---
PROCEDURE: ANGIO CHEST W/WO INDICATIONS: PE protocol for dyspnea and hemoptysis CONTRAST: 80ml Omnipaque 300 TECHNIQUE: After the administration of intravenous contrast, 2 mm axial images were acquired from the pulmonary apices to the posterior costophrenic angles during the arterial phase. In addition, 1 mm lung kernel and 5 mm soft tissue kernel reconstructions were performed. 3-dimensional coronal oblique maximum int ensity projection (MIP) reformats, 8 mm axial MIP, and 5 mm coronal and sagittal MPR reformats were t hen performed through the thorax. For radiation dose reduction, the following was used: automated exp osure control, adjustment of mA and/or kV according to patient size. COMPARISON: None FINDINGS: Image quality: Suboptimal due to motion artifact. Large vessels: No filling defects within the opacified pulmonary arteries, accounting for motion and contrast timing. No evidence of acute aortic syndrome or aortic aneurysm. Lungs and pleura: No pleural effusions. No pneumothorax. No suspicious pulmonary nodules which requi re follow up. Mediastinum: Heart size is normal. No pericardial effusions. No mediastinal adenopathy by size criter ia. Chest wall and lower neck: Thyroid is unremarkable. No axillary or supraclavicular adenopathy by size . Bones: No aggressive osseous abnormality. Upper Abdomen: Unremarkable. IMPRESSION: Suboptimal evaluation due to motion artifact. No clinically significant pulmonary embolus. No evidenc e of infarct or heart strain. Reviewed by: Evert Sesay on 12/13/2022 1:10 PM PDT Approved by: Evert Sesay on 12/13/2022 1:10 PM PDT Station ID: [id number]
[2022-12-13 13:15] VITALS: BP 129/90
[2022-12-13] MEDS ORDERED: iohexoL-300 100 ML VIAL IVP ONE (15:51)
== END 2022-12-13 13:27 | disposition home or self-care (01) ==
LOC: ED 10:59
DX: G43.001 Migraine without aura, not intractable, with status migrainosus (principal); R07.9 Chest pain, unspecified
CPT/HCPCS: 36415; 71045; 71275; 80053; 83690; 84484; 85025; 93005; 96374; 96375; 99284; 99285; J1200; J2765; Q9967

== ENCOUNTER 2023-08-08 10:10 | Emergency (ER) | payer OTHER ==
[2023-08-08 10:46] VITALS: O2SAT 100
[2023-08-08 11:40] LABS: BASOPHILS # (AUTO) 0.1 10^3/uL (0.0-0.1); BASOPHILS % (AUTO) 0.8 %; EOSINOPHILS # (AUTO) 0.1 10^3/uL (0.0-0.7); EOSINOPHILS % (AUTO) 0.6 %; HCT - HEMATOCRIT 49.9 % (37.0-47.0); HGB - HEMOGLOBIN 16.4 g/dL (12.0-16.0); LYMPHOCYTES # (AUTO) 1.7 10^3/uL (1.5-3.5); LYMPHOCYTES % (AUTO) 20.9 %; MEAN CORPUSCULAR HEMOGLOBIN 29.5 pg (27.0-31.0); MEAN CORPUSCULAR HGB CONC 32.9 g/dL (32.0-36.0); MEAN CORPUSCULAR VOLUME 89.9 fL (81.0-99.0); MONOCYTES # (AUTO) 0.4 10^3/uL (0.0-1.0); MONOCYTES % (AUTO) 5.3 %; NEUTROPHILS # (AUTO) 5.7 10^3/uL (1.5-6.6); NEUTROPHILS % (AUTO) 72.1 %; PLT - PLATELET COUNT 339 10^3/uL (130-450); RED BLOOD COUNT 5.55 10^6/uL (4.20-5.40); RED CELL DISTRIBUTION WIDTH 12.7 % (12.0-15.0); WHITE BLOOD COUNT 7.9 x10^3/uL (4.8-10.8)
[2023-08-08 12:09] LABS: ALBUMIN 4.8 g/dL (3.2-5.5)
[2023-08-08 12:18] LABS: ALBUMIN/GLOBULIN RATIO 1.6 (1.0-2.2); BILIRUBIN,TOTAL 0.6 mg/dL (0.2-1.0); CREATININE 1.1 mg/dL (0.6-1.3); POTASSIUM 4.4 mmol/L (3.5-4.5); TOTAL PROTEIN 7.8 g/dL (6.4-8.9)
[2023-08-08 12:36] LABS: TROPONIN I HIGH SENSITIVITY 3.1 ng/L (2.3-14.8)
--- NOTE | 2023-08-08 14:39 | ED Physician Documentation ---
History of Present Illness - Stated complaint Stated Complaint: PASSED OUT/DIZZY - Chief complaint Chief Complaint: Neuro - History obtained from History obtained from: Patient - History of Present Illness Timing: Today Pain level max: 8 Pain level now: 8 - Additonal information Additional information: Patient is a 48-year-old female who presents to the emergency department with dizziness. She states that she was in the shower today when she felt lightheaded, dizzy and passed out. She has been being worked up with her primary care provider for the past 4 months for recurrent bouts of dizziness. She states she is especially dizzy when she first stands up or looks up for prolonged periods of time. Has chronic headaches. Patient states that she has her usual migraine headache today as well. Took her usual migraine headache medication without relief. She states that in April she had an MRI of her brain, C-spine, T-spine, L-spine that did not show any acute findings. She is awaiting referral to neurology for the dizziness. No fevers. No chills. No changes to her medications. Worse with standing, better with lying flat. 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 - Present Medications Home Medications: Ambulatory Orders Medication Instructions Recorded Confirmed Buprenorphine HCl/Naloxone HCl 01/23/21 [Suboxone 8-2 mg Tab] Gabapentin [Neurontin] 01/23/21 Levothyroxine [Synthroid] 01/23/21 Lisdexamfetamine Dimesylate 01/23/21 01/23/21 [Vyvanse] Pantoprazole Sodium [Protonix] 40 mg PO DAILY 01/23/21 01/23/21 Prochlorperazine [Compazine] 01/23/21 01/23/21 Venlafaxine ER [Effexor ER] 01/23/21 traZODone [Desyrel] 50 mg PO HS 06/04/21 06/04/21 HYDROcod/ACETAM 5/325 [[place] 5/325] 1 - 2 tablet PO Q6H PRN #10 tablet 01/24/21 LORazepam [Ativan] 1 mg PO TID PRN #12 tablet 01/26/21 Doxycycline Hyclate 100 mg PO BID 7 Days #14 tab 05/21/21 HYDROcod/ACETAM 5/325 [[place] 5/325] 1 ea PO Q6H PRN #12 tablet 05/21/21 Naproxen 250 mg PO BID 7 Days #14 tablet 05/21/21 Ondansetron Odt [Zofran] 4 mg TL Q6H PRN #10 tablet 05/21/21 Phenazopyridine HCl [Pyridium] 100 mg PO TID PRN #15 tablet 05/21/21 Famotidine [Pepcid] 20 mg PO DAILY #20 tablet 07/05/22 HYDROcod/ACETAM 5/325 [[place] 5/325] 1 ea PO Q6H PRN #18 tablet 07/05/22 Lidocaine Viscous 2% [Xylocaine 5 ml PO Q4H PRN #100 ml 07/05/22 Viscous 2%] Ondansetron Odt [Zofran] 4 mg TL Q6H PRN #10 tablet 07/05/22 Sucralfate [Carafate] 1 gm PO ACHS #20 tablet 07/05/22 Albuterol Sulf [Ventolin Hfa 1 - 2 puffs INH Q4HR PRN #1 each 12/06/22 Inhaler] Metoprolol Tartrate [Lopressor] 25 mg PO BID #60 tablet 08/08/23 - Allergies Allergies/Adverse Reactions: Allergies Allergy/AdvReac Type Severity Reaction Status Date / Time baclofen Allergy Hallucinati Verified 08/08/23 10:43 ons buspirone [From BuSpar] Allergy Unknown Verified 08/08/23 10:43 carbamazepine [From Tegretol] Allergy Unknown Verified 08/08/23 10:43 zolpidem [From Ambien] Allergy Unknown Verified 08/08/23 10:43 cyclobenzaprine AdvReac Anxiety Verified 08/08/23 10:43 [From Flexeril] - Social History Does the pt smoke?: Yes Smoking Status: Current every day smoker Does the pt drink ETOH?: No Does the pt have substance abuse?: Yes Substance Use and Type: Marijuana - Immunizations Immunizations are current?: Yes - POLST Patient has POLST: No PD ED PE NORMAL - Vitals Vital signs reviewed: Yes - General General: Alert and oriented X 3, No acute distress - HEENT HEENT: PERRL, Moist mucous membranes - Neck Neck: Supple, no meningeal sign - Cardiac Cardiac: RRR, No murmur, Strong equal pulses - Respiratory Respiratory: No respiratory distress, Clear bilaterally - Abdomen Abdomen: Soft, Non tender, Non distended - Derm Derm: Warm and dry - Extremities Extremities: No edema, No calf tenderness / cord - Neuro Neuro: Alert and oriented X 3, hr administrator 2-12 intact, No motor deficit, No sensory deficit, Normal speech Eye Opening: Spontaneous Motor: Obeys Commands Verbal: Oriented GCS Score: 15 - Psych Psych: Normal mood, Normal affect Results - Vitals Vitals: Vital Signs - 24 hr 08/08/23 08/08/23 08/08/23 10:37 14:43 15:24 Temperature 36.0 C L 36.9 C Heart Rate 88 98 98 Respiratory 16 18 18 Rate Blood Pressure 127/94 H 137/86 H 137/86 H O2 Saturation 100 100 100 08/08/23 16:17 Temperature 36.1 C L Heart Rate 93 Respiratory 15 Rate Blood Pressure 123/80 O2 Saturation 100 Oxygen O2 Source Room air - EKG (time done) 1048 EKG releavant findings:: EKG personally interpreted by author of this note. Relevant findings are: Rate: Rate (enter#) (88) Rhythm: NSR [place]: Normal Intervals: Normal [place] QRS: Normal Ischemia: Normal ST segments - Labs Labs: Laboratory Tests 08/08/23 08/08/23 08/08/23 10:54 11:36 11:36 WBC 7.9 RBC 5.55 H Hgb 16.4 H Hct 49.9 H MCV 89.9 MCH 29.5 MCHC 32.9 RDW 12.7 Plt Count 339 MPV 9.0 Neut # (Auto) 5.7 Lymph # (Auto) 1.7 [place] # (Auto) 0.4 Eos # (Auto) 0.1 Baso # (Auto) 0.1 Absolute Nucleated RBC 0.00 Nucleated RBC % 0.0 Sodium 136 Potassium 4.4 Chloride 104 Carbon Dioxide 24 Anion Gap 8.0 BUN 17 Creatinine 1.1 Estimated GFR (MDRD) 53 L Glucose 88 POC Whole Bld Glucose 80 Calcium 10.0 Total Bilirubin 0.6 AST 13 ALT 11 Alkaline Phosphatase 77 Troponin I High Sens 3.1 Total Protein 7.8 Albumin 4.8 Globulin 3.0 Albumin/Globulin Ratio 1.6 Lipase 12 PD Medical Decision Making - ED course Complexity details: reviewed results, re-evaluated patient, considered di fferential, d/w patient ED course: Patient does have postural tachycardia in the emergency department. Heart rate increases to approximately 140-150 with standing, worsening when looking up. When she lies back down heart rate goes back down to the 80s. No significant drop in blood pressure. Patient was given 25 mg of metoprolol and 2 L of IV fluids. Her dizziness resolved and she felt much better with standing. Heart rate did not increase significantly with standing at this time. Her chronicity of symptoms are consistent with postural tachycardia syndrome. We will start her on metoprolol for home and have her follow-up with her PCP for further care. Patient was informed that she will need further workup and may need further medications. Also counseled regarding fluid intake, salt intake and need for exercise. Patient counseled regarding signs and symptoms for which I believe and urgent re-evaluation would be necessary. Patient with good understanding of and agreement to plan and is comfortable going home at this time This document was made in part using voice recognition software. While efforts are made to proofread this document, sound alike and grammatical errors may occur. Departure - Departure Disposition: 01 Home, Self Care Clinical Impression: POTS (postural orthostatic tachycardia syndrome) Condition: Good Follow-Up: ADAMS SOUSA DO [Primary Care Provider] - Within 1 week Prescriptions: Metoprolol Tartrate [Lopressor] 25 mg PO BID #60 tablet Comments: Your prescriptions were sent to [facility] in [place]. We will start you on met oprolol twice a day, this should help to decrease the spike in your heart rate when you stand up. You likely are positive for postural tachycardic syndrome, also known as POTS. You should be drinking approximately 3 L of water per day with a daily salt intake of 8 to 12 g. Exercise can often help the symptoms as well. This can include aerobic and resistance training. It is often easier to start an exercise program that uses semirecumbent position such as a recommend bicycle, rowing machine or swimming pool. You can also try compression stockings in your lower legs as this may help as well. Please follow-up with your doctor for further care. Please return if you worsen. When you initially arrived in the emergency department, your resting heart rate was around 90-100, when you stood up your heart rate went to 140 bpm to 150 bpm. Your blood pressure did not drop significantly. After the metoprolol, your resting heart rate did not increase significantly with standing. You were also given 2 L of IV fluids. Forms: PCP List Discharge Date/Time: 08/08/23 16:17
[2023-08-08] MEDS: SODIUM CHLORIDE 0.9% 2,000 ML IV STA (14:43)
[2023-08-08] MEDS: METOPROLOL TARTRATE 25 MG TABLET PO STA (14:48)
[2023-08-08] MEDS: diphenhydrAMINE INJ 50 MG/ML VIAL IVP STA (14:50)
[2023-08-08] MEDS: KETOROLAC 15 MG/ML VIAL IVP STA (14:51)
[2023-08-08] MEDS: METOCLOPRAMIDE 10 MG/2 ML VIAL IVP STA (14:55)
[2023-08-08 16:19] VITALS: BP 123/80
== END 2023-08-08 16:17 | disposition home or self-care (01) ==
LOC: ED 10:10
DX: G90.A Postural orthostatic tachycardia syndrome [POTS] (principal); F17.200 Nicotine dependence, unspecified, uncomplicated; Z79.899 Other long term (current) drug therapy
CPT/HCPCS: 36415; 80053; 83690; 84484; 85025; 93005; 96374; 96375; 99283

== ENCOUNTER 2023-10-21 17:50 | Emergency (ER) | payer OTHER ==
[2023-10-21 18:32] LABS: BASOPHILS % (AUTO) 0.4 %; EOSINOPHILS % (AUTO) 0.1 %; HCT - HEMATOCRIT 47.5 % (37.0-47.0); HGB - HEMOGLOBIN 16.3 g/dL (12.0-16.0); LYMPHOCYTES % (AUTO) 19.5 %; MEAN CORPUSCULAR HEMOGLOBIN 29.5 pg (27.0-31.0); MEAN CORPUSCULAR HGB CONC 34.3 g/dL (32.0-36.0); MEAN CORPUSCULAR VOLUME 86.1 fL (81.0-99.0); MEAN PLATELET VOLUME 9.1 fL (7.9-10.8); MONOCYTES # (AUTO) 0.5 10^3/uL (0.0-1.0); MONOCYTES % (AUTO) 5.2 %; NEUTROPHILS # (AUTO) 7.6 10^3/uL (1.5-6.6); NEUTROPHILS % (AUTO) 74.5 %; PLT - PLATELET COUNT 354 10^3/uL (130-450); RED BLOOD COUNT 5.52 10^6/uL (4.20-5.40); RED CELL DISTRIBUTION WIDTH 12.1 % (12.0-15.0); WHITE BLOOD COUNT 10.2 x10^3/uL (4.8-10.8)
[2023-10-21] MEDS: SODIUM CHLORIDE 0.9% 1,000 ML IV STA ×2 (18:33→18:43)
[2023-10-21] MEDS: MORPHINE 2 MG/ML CARPUJECT IVP STA (18:42)
[2023-10-21] MEDS: DROPERIDOL 5 MG/2 ML VIAL IVP STA (18:42)
--- NOTE | 2023-10-21 18:43 | ED Physician Documentation ---
History of Present Illness - Stated complaint Stated Complaint: VOMIT/BACK PX/ABD PX - Chief complaint Chief Complaint: Abd Pain - History obtained from History obtained from: Patient, Family - History of Present Illness Pain level max: 5 Pain level now: 5 - Additonal information Additional information: 48-year-old female presents to the emergency department with 4 days of nausea, vomiting. She states she has right-sided abdominal pain as well. Right upper and right lower quadrant. Has a history of POTS. She states that she had a telehealth visit in which she reported was prescribed Zofran, but she was unable to get to the pharmacy to pickle solution maker the medication. No fevers. No chills. No recent antibiotics. No recent camping. No bad food exposure that she is aware of. She is having diarrhea as well. 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 - Present Medications Home Medications: Ambulatory Orders Medication Instructions Recorded Confirmed Buprenorphine HCl/Naloxone HCl 01/23/21 [Suboxone 8-2 mg Tab] Gabapentin [Neurontin] 01/23/21 Levothyroxine [Synthroid] 01/23/21 Lisdexamfetamine Dimesylate 01/23/21 01/23/21 [Vyvanse] Pantoprazole Sodium [Protonix] 40 mg PO DAILY 01/23/21 01/23/21 Prochlorperazine [Compazine] 01/23/21 01/23/21 Venlafaxine ER [Effexor ER] 01/23/21 traZODone [Desyrel] 50 mg PO HS 01/23/21 01/23/21 HYDROcod/ACETAM 5/325 [[place] 5/325] 1 - 2 tablet PO Q6H PRN #10 tablet 01/24/21 LORazepam [Ativan] 1 mg PO TID PRN #12 tablet 01/26/21 Doxycycline Hyclate 100 mg PO BID 7 Days #14 tab 05/21/21 HYDROcod/ACETAM 5/325 [[place] 5/325] 1 ea PO Q6H PRN #12 tablet 05/21/21 Naproxen 250 mg PO BID 7 Days #14 tablet 05/21/21 Ondansetron Odt [Zofran] 4 mg TL Q6H PRN #10 tablet 05/21/21 Phenazopyridine HCl [Pyridium] 100 mg PO TID PRN #15 tablet 05/21/21 Famotidine [Pepcid] 20 mg PO DAILY #20 tablet 07/05/22 HYDROcod/ACETAM 5/325 [[place] 5/325] 1 ea PO Q6H PRN #18 tablet 07/05/22 Lidocaine Viscous 2% [Xylocaine 5 ml PO Q4H PRN #100 ml 07/05/22 Viscous 2%] Ondansetron Odt [Zofran] 4 mg TL Q6H PRN #10 tablet 07/05/22 Sucralfate [Carafate] 1 gm PO ACHS #20 tablet 07/05/22 Albuterol Sulf [Ventolin Hfa 1 - 2 puffs INH Q4HR PRN #1 each 12/06/22 Inhaler] Metoprolol Tartrate [Lopressor] 25 mg PO BID #60 tablet 08/08/23 Ondansetron Odt [Zofran] 4 mg TL Q6H PRN #10 tablet 10/21/23 Promethazine [Phenergan] 25 mg PO Q6H PRN #10 tab 10/21/23 cephALEXin [Keflex] 500 mg PO Q6H #20 cap 10/21/23 - Allergies Allergies/Adverse Reactions: Allergies Allergy/AdvReac Type Severity Reaction Status Date / Time baclofen Allergy Hallucinati Verified 10/21/23 18:15 ons buspirone [From BuSpar] Allergy Unknown Verified 10/21/23 18:15 carbamazepine [From Tegretol] Allergy Unknown Verified 10/21/23 18:15 zolpidem [From Ambien] Allergy Unknown Verified 10/21/23 18:15 cyclobenzaprine AdvReac Anxiety Verified 10/21/23 18:15 [From Flexeril] - Social History Does the pt smoke?: No Smoking Status: Former smoker Does the pt drink ETOH?: No Does the pt have substance abuse?: No Substance Use and Type: Marijuana - Immunizations Immunizations are current?: Yes - POLST Patient has POLST: No PD ED PE NORMAL - Vitals Vital signs reviewed: Yes - General General: Alert and oriented X 3, No acute distress - HEENT HEENT: PERRL, Moist mucous membranes - Neck Neck: Supple, no meningeal sign - Cardiac Cardiac: RRR, Strong equal pulses - Respiratory Respiratory: No respiratory distress, Clear bilaterally - Abdomen Abdomen: Soft, Non tender, Non distended - Derm Derm: Warm and dry - Extremities Extremities: No deformity - Neuro Neuro: Alert and oriented X 3 - Psych Psych: Normal mood, Normal affect Results - Vitals Vitals: Vital Signs - 24 hr 10/21/23 10/21/23 17:58 19:13 Temperature 36.0 C L Heart Rate 120 H 105 H Respiratory 18 18 Rate Blood Pressure 129/91 H 126/76 O2 Saturation 99 100 Oxygen O2 Source Room air - Labs Labs: Laboratory Tests 10/21/23 10/21/23 10/21/23 18:25 18:25 18:25 WBC 10.2 RBC 5.52 H Hgb 16.3 H Hct 47.5 H MCV 86.1 MCH 29.5 MCHC 34.3 RDW 12.1 Plt Count 354 MPV 9.1 Neut # (Auto) 7.6 H Lymph # (Auto) 2.0 [place] # (Auto) 0.5 Eos # (Auto) 0.0 Baso # (Auto) 0.0 Absolute Nucleated RBC 0.00 Nucleated RBC % 0.0 Sodium 134 L Potassium 2.7 L Chloride 97 L Carbon Dioxide 25 Anion Gap 12.0 BUN 11 Creatinine 0.9 Estimated GFR (MDRD) 67 L Glucose 113 H Calcium 10.2 Phosphorus 3.5 Magnesium 1.9 Total Bilirubin 0.8 AST 24 ALT 70 H Alkaline Phosphatase 73 Total Protein 7.4 Albumin 4.6 Globulin 2.8 Albumin/Globulin Ratio 1.6 Lipase 12 Urine Color Urine Clarity Urine pH Ur Specific [place] Urine Protein Urine Glucose (UA) Urine Ketones Urine Occult Blood Urine Nitrite Urine Bilirubin Urine Urobilinogen Ur Leukocyte Esterase Urine RBC Urine WBC Ur Squamous Epith Cells Urine Bacteria Ur Microscopic Review Urine Culture Comments 10/21/23 19:55 WBC RBC Hgb Hct MCV MCH MCHC RDW Plt Count MPV Neut # (Auto) Lymph # (Auto) [place] # (Auto) Eos # (Auto) Baso # (Auto) Absolute Nucleated RBC Nucleated RBC % Sodium Potassium Chloride Carbon Dioxide Anion Gap BUN Creatinine Estimated GFR (MDRD) Glucose Calcium Phosphorus Magnesium Total Bilirubin AST ALT Alkaline Phosphatase Total Protein Albumin Globulin Albumin/Globulin Ratio Lipase Urine Color YELLOW Urine Clarity CLEAR Urine pH 6.5 Ur Specific [place] <=1.005 Urine Protein NEGATIVE Urine Glucose (UA) NEGATIVE Urine Ketones 15 H Urine Occult Blood NEGATIVE Urine Nitrite NEGATIVE Urine Bilirubin NEGATIVE Urine Urobilinogen 0.2 (NORMAL) Ur Leukocyte Esterase TRACE H Urine RBC 0-5 Urine WBC 6-10 H Ur Squamous Epith Cells FEW Squamous Urine Bacteria Rare Ur Microscopic Review INDICATED Urine Culture Comments INDICATED PD Medical Decision Making - ED course Complexity details: reviewed results, re-evaluated patient, considered differential, d/w patient, d/w family ED course: Patient was given IV droperidol and morphine. Also given 2 bags of normal saline. Nausea, vomiting and abdominal pain resolved. Patient is very well- appearing, nontoxic. Afebrile. She does appear to have a UTI and was given ceftriaxone. Potassium was low and she was given potassium bicarbonate. She is tolerating p.o. without difficulty. Abdomen is soft, nontender nondistended on serial exam. Patient is requesting to go home at this time. No evidence of surgical abdomen. No indication for emergent imaging. We will prescribe anti biotics and nausea medication for home. Have her follow-up with her doctor for further care. Patient counseled regarding signs and symptoms for which I believe and urgent re-evaluation would be necessary. Patient with good understanding of and agreement to plan and is comfortable going home at this time This document was made in part using voice recognition software. While efforts are made to proofread this document, sound alike and grammatical errors may occur. Departure - Departure Disposition: 01 Home, Self Care Clinical Impression: POTS (postural orthostatic tachycardia syndrome) Vomiting Qualifiers: Vomiting type: unspecified Nausea presence: with nausea Qualified Code(s): R11.2 - Nausea with vomiting, unspecified Abdominal pain Qualifiers: Abdominal location: unspecified location Qualified Code(s): R10.9 - Unspecified abdominal pain Urinary tract infection Qualifiers: Urinary tract infection type: acute cystitis Hematuria presence: without hematuria Qualified Code(s): N30.00 - Acute cystitis without hematuria Condition: Good Instructions: ED UTI Cystitis Female, ED Nausea Vomiting Follow-Up: ALEXA NOGUEIRA, CNM [Primary Care Provider] - Prescriptions: cephALEXin [Keflex] 500 mg PO Q6H #20 cap Promethazine [Phenergan] 25 mg PO Q6H PRN #10 tab PRN Reason: Nausea / Vomiting Ondansetron Odt [Zofran] 4 mg TL Q6H PRN #10 tablet PRN Reason: Nausea / Vomiting Comments: Your prescriptions were sent to [facility] in [place]. Take all antibiotics until gone. You can use the Zofran and Phenergan as needed for nausea and vomiting. Your potassium was low today and should be rechecked with your doctor. Please return if you worsen. Forms: PCP List
[2023-10-21 18:48] LABS: ALBUMIN 4.6 g/dL (3.2-5.5); ALBUMIN/GLOBULIN RATIO 1.6 (1.0-2.2); BILIRUBIN,TOTAL 0.8 mg/dL (0.2-1.0); CALCIUM 10.2 mg/dL (8.5-10.3); CREATININE 0.9 mg/dL (0.6-1.3); POTASSIUM 2.7 mmol/L (3.5-4.5); TOTAL PROTEIN 7.4 g/dL (6.4-8.9)
[2023-10-21 20:10] LABS: BILIRUBIN,URINE NEGATIVE (NEGATIVE); GLUCOSE, URINE (UA) NEGATIVE (NEGATIVE); KETONES,URINE (UA) 15 mg/dL (NEGATIVE); LEUKOCYTE ESTERASE, URINE TRACE (NEGATIVE); NITRITE,URINE NEGATIVE (NEGATIVE); OCCULT BLOOD,URINE NEGATIVE (NEGATIVE); PH,URINE 6.5 PH (5.0-7.5); PROTEIN,URINE NEGATIVE (NEGATIVE); UROBILINOGEN,URINE 0.2 (NORMAL) E.U./dL (NORMAL)
[2023-10-21 20:11] LABS: CLARITY,URINE CLEAR (CLEAR)
[2023-10-21] MEDS: POTASSIUM BICARB 25 MEQ TABLET PO STA (20:14)
[2023-10-21 20:17] LABS: MAGNESIUM 1.9 mg/dL (1.7-2.3); PHOSPHORUS 3.5 mg/dL (2.5-5.0)
[2023-10-21 20:35] LABS: BACTERIA,URINE Rare /HPF (None Seen); RBC,URINE 0-5 /HPF (0-5); SQUAMOUS EPITHELIAL CELL,UR FEW Squamous (<= Few)
[2023-10-21] MEDS: cefTRIAXone 1 GM VIAL IVP STA (20:58)
[2023-10-21 21:20] VITALS: BP 120/84; O2SAT 96
== END 2023-10-21 21:15 | disposition home or self-care (01) ==
LOC: ED 17:50
DX: G90.A Postural orthostatic tachycardia syndrome [POTS] (principal); N30.00 Acute cystitis without hematuria; Z87.891 Personal history of nicotine dependence
CPT/HCPCS: 36415; 80053; 81001; 83690; 83735; 84100; 85025; 87086; 96374; 96375; 99283; A9270; 81003

== ENCOUNTER 2024-01-23 08:55 | Outpatient (CLI) | payer OTHER ==
--- NOTE | 2024-01-23 10:24 | XRAY Report ---
PROCEDURE: Knee 4+V LT INDICATIONS: PAIN IN LEFT KNEE TECHNIQUE: 4 views of the knee(s) were acquired. COMPARISON: None. FINDINGS: Bones: Overall mild degenerative changes in the medial and patellofemoral compartments. Slight latera l patellar tilt. No acute displaced fracture or dislocation. Soft tissues: Possible small joint effusion IMPRESSION: Mild degenerative changes. Possible small joint effusion. If there is high concern for further derang ement, consider MRI evaluation. Reviewed by: Christian Xavier MD on 01/23/2024 10:23 AM PDT Approved by: Christian Xavier MD on 01/23/2024 10:23 AM PDT Station ID: [id number]
== END 2024-01-23 08:56 | disposition home or self-care (01) ==
LOC: DI 08:55
PROVIDERS: ATTEND Physician Assistant Surgical
DX: M17.12 Unilateral primary osteoarthritis, left knee (principal)

== ENCOUNTER 2024-02-10 06:24 | Outpatient (CLI) | payer OTHER ==
[2024-02-10] MEDS ORDERED: GADOTERATE MEGLUMINE 7.5 MMOL/15 ML VIAL ONE (07:10)
[2024-02-10 07:27] LABS: CREATININE 0.8 mg/dL (0.6-1.3)
[2024-02-10] MEDS: GADOTERATE MEGLUMINE 7.5 MMOL/15 ML VIAL IVP ONE (08:49)
--- NOTE | 2024-02-10 11:54 | MRI Report ---
PROCEDURE: Knee LT WO INDICATIONS: L KNEE PAIN, NEOPLASM OF LONG BONE OF L LOWER LIMB TECHNIQUE: Noncontrast sagittal PD fast spin echo and T2 fast spin echo with fat saturation, sagittal 3-D gradie nt sequence with fat saturation; coronal T1 spin echo and PD fast spin echo with fat saturation, and axial PD fast spin echo with fat saturation through the knee. COMPARISON: Left knee radiograph dated 01/23/2024. FINDINGS: Image quality: Excellent. Menisci: The medial and lateral menisci demonstrate normal morphology and internal signal. The meni scal root ligaments appear intact. Cruciate ligaments: The anterior and posterior cruciate ligaments appear intact. Medial structures: The medial collateral ligament appears intact. Visualized portions of the pes ans erinus tendons appear normal. No abnormal bursal fluid. Lateral structures: The lateral collateral ligament, long and short heads of the biceps femoris tend on appear intact. The popliteus tendon appears normal. Iliotibial band appears normal. Anterior structures: The quadriceps and patellar tendons appear intact. Patellar alignment is ana l. There is low-grade sprain involving medial patellofemoral ligament at its patellar insertion. No femoral trochlear dysplasia or ventral trochlear prominence. No edema in the infrapatellar fat pad. Bones and cartilage: No bone marrow contusions or fractures. Slight lateral cortical thickening invo lving proximal tibia incompletely evaluated on this study. The cartilage of the medial and lateral fe morotibial compartments appears normal in thickness. Low-grade chondromalacia in medial facet of knox lla cartilage is seen. Joint space: There is physiologic knee joint fluid. No Faria's cyst. Normal appearing synovial pli are incidentally noted. IMPRESSION: 1. Lateral cortical thickening involving proximal tibial shaft incompletely evaluated on this study. Please correlate with MRI of lower leg report for evaluation of tibia. 2. No left knee fracture or dislocation. No other suspicious bony lesions. Low-grade chondromalacia i nvolving medial facet of patella cartilage. Small joint effusion, no loose bodies. 3. Low-grade sprain involving medial patellofemoral ligament at its patellar insertion. 4. The cruciate ligaments are intact. 5. No evidence of focal meniscal tear. Reviewed by: Cornelius Lutz MD on 02/10/2024 11:53 AM PDT Approved by: Cornelius Lutz MD on 02/10/2024 11:53 AM PDT Station ID: [id number]
--- NOTE | 2024-02-10 12:13 | MRI Report ---
PROCEDURE: Lower Leg (Tib-Fib) LT W/WO INDICATIONS: L KNEE PAIN, NEOPLASM OF LONG BONE OF L LOWER LIMB CONTRAST: CLARISCAN 13.2 ML TECHNIQUE: Noncontrast coronal T1 spin echo and STIR, sagittal T1 spin echo with fat saturation and STIR, axial T1 spin echo and T2 fast spin echo with fat saturation. After the administration of contrast, axial/ sagittal/coronal T1 spin echo with fat saturation through the left lower leg. COMPARISON: Left knee radiograph dated 01/23/2024. FINDINGS: Image quality: Excellent. Bones: There is no fracture or dislocation. Ill-defined and slightly lobulated area of mild T2 hyperi ntense and T1 hypointense signal involving lateral medullary space of proximal tibial shaft with endo steal scalloping involving adjacent lateral cortex of the proximal tibial shaft starting just below t he and patella tendon insertion and extending approximately approximately 4 cm in craniocaudal dimens ion and up to 1.2 x 1.2 cm in size in AP and transverse dimensions. This is best seen on series 15 im age 9 series 19 image 18 and series 14 image 8. Mild periosteal reaction along anterolateral cortex o f proximal tibial shaft at this level is seen. No other area of abnormal marrow signal is noted. Afte r IV contrast infusion, there is questionable mild contrast enhancement within this area. No other ar ea of abnormal intraosseous enhancement is seen. Soft tissues: No enhancing soft tissue mass or drainable fluid collection is noted in left lower leg. Mild edema within left soleus muscle and inferior portion of gastrocnemius muscle lateral head is se en without discrete intramuscular mass or fluid collection. IMPRESSION: 1. Ill-defined lobulated area of mild T2 hyperintense and T1 hypointense lesion along lateral cortex of proximal tibial shaft with areas of cortical thinning and adjacent mild periosteal reaction measur es up to 1.2 x 1.2 x 4 cm in size. Questionable mild contrast enhancement is noted within this area. Finding is concerning for benign or malignant neoplastic process. 2. No definite enhancing soft tissue mass or drainable fluid collection. Suggestion of low-grade stra in involving left soleus muscle and inferior portion of lateral head gastrocnemius muscle. Reviewed by: Cornelius Lutz MD on 02/10/2024 12:11 PM PDT Approved by: Cornelius Lutz MD on 02/10/2024 12:11 PM PDT Station ID: [id number]
== END 2024-02-10 06:25 | disposition home or self-care (01) ==
LOC: LAB 06:24
PROVIDERS: ATTEND Physician Assistant Surgical
DX: M25.562 Pain in left knee (principal); D16.22 Benign neoplasm of long bones of left lower limb; R93.6 Abnormal findings on diagnostic imaging of limbs
CPT/HCPCS: 36415; 82565